=== PATIENT | male | born 1995 | race Caucasian/White ===

== ENCOUNTER 2022-09-05 10:31 | Emergency (ER) | payer BC, OTHER ==
[2022-09-05] MEDS ORDERED: Ibuprofen 800 MG TAB ONE (10:55)
[2022-09-05] MEDS ORDERED: HYDROcodone/Acetaminophen 10/325 mg Tablet ONE (11:38)
== END 2022-09-05 11:45 | disposition home or self-care (01) ==
LOC: NAV ERS 10:31
DX: S83.92XA Sprain of unspecified site of left knee, initial encounter (principal); F17.290 Nicotine dependence, other tobacco product, uncomplicated; I10 Essential (primary) hypertension; W22.8XXA Striking against or struck by other objects, initial encounter